=== PATIENT | male | born 1980 | race Caucasian/White ===

== ENCOUNTER 2016-10-25 16:10 | Emergency (ER) | payer OTHER ==
[~2016-10-25] VITALS: Ht 193 cm; Wt 93.3 kg
[2016-10-25 16:18] VITALS: BP 115/80; TEMP 36.4; Ht 193 cm; Wt 93.3 kg
[2016-10-25] MEDS ORDERED: CYCL10TA6 PO (17:13)
[2016-10-25] MEDS ORDERED: TRAM-10 PO (17:13)
--- NOTE | 2016-10-25 17:13 | EMERGENCY ROOM VISIT NOTE ---
ED Visit Note First contact with patient: 16:36 CHIEF COMPLAINT: Low back pain 5 days HISTORY OF PRESENT INJURY: Patient is a 36-year-old white male who presents to emergency department for evaluation of left-sided low back pain. He states that he lifted a heavy window air-conditioning unit 5 days ago, and while holding the air conditioner and twisting slightly, he felt an acute twinge in his left low back. He states that he has had discomfort in the left low back that radiates slightly to the buttocks since then, it has worsened in the last couple of days. He states that he now has pain with any type of movement, including bending over or standing upright. He has difficulty with position changes. It radiates into the left buttock, but does not wrap around to the right side. He denies any pain radiating to his hips, legs or groin. He tried resting, taking ibuprofen and standing in a hot shower. He is on gabapentin chronically for a paresthesia in the anterior right thigh as a result of his right acetabular ORIF. He otherwise denies any changes in the numbness, tingling in his legs, and no leg weakness. He has a remote history of an old T9 fracture from a fall. He does not have a history of any low back problems. He denies any bowel or bladder incontinence or saddle anesthesias. He rates his pain an 8/10. REVIEW OF SYSTEMS: Review of systems as per HPI. All other systems reviewed were negative. 10 systems reviewed. PMH: Electronic medical records are reviewed and summarized as above/below. See Problem List. SOCIAL HISTORY: Patient lives at home in [place], but is apparently staying locally with his wheelchair-bound girlfriend. He is a smoker. 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 PHYSICAL EXAM: Vital Signs: Reviewed Nurse's notes. CONSTITUTIONAL: Patient is a well-appearing 36-year-old white male who is awake and alert and laying supine on the gurney in mild distress due to their back pain. There is significant discomfort with position changes. HEENT: Normocephalic, atraumatic. Pupils equal, round, reactive to light and accommodation. EOMs intact without nystagmus. Sclera are anicteric. Tympanic membranes intact, with normal landmarks. External canals are clear. Oral and nasopharynx are clear. Mucous membranes are moist. NECK: No bruits auscultated. Supple without lymphadenopathy. No thyromegaly. No meningeal signs. Full active range of motion without discomfort. CARDIOVASCULAR: Regular rate and rhythm, with normal S1 and S2, no murmur or gallop or rub is heard. No carotid bruits auscultated. No JVD. Peripheral pulses easily palpable. RESPIRATORY: Breath sounds equal and clear to auscultation without wheezes, rales, or rhonchi heard. Full and equal chest expansion without accessory muscle use or retractions. ABDOMEN: Bowel sounds are present. Abdomen is soft, nontender and nondistended. Well-healed surgical scars are noted. INTEGUMENTARY: No lesions or rash, normal skin turgor. LYMPH: No lymphadenopathy. SPINE: Examination of the patient's back does not demonstrate any ecchymosis, abrasions or outward signs of trauma. No erythema, increased warmth or induration. Patient has midline discomfort to palpation over the low lumbar spine, primarily on the left. There is no pain over the SI joint or the sciatic notch. He has increased pain with range of motion including rotation and flexion. EXTREMITIES: Leg lengths are symmetrical. Negative logroll bilaterally. Normal strength including dorsi-flexion and plantar flexion of the great toes and ankles and flexion and extension of the knees and flexion of the hips. Negative bilateral straight leg raise testing. Lower extremity DTRs are equal and symmetrical bilaterally. Distal pulses are easily palpable. Sensation light touch is intact over the lower extremities bilaterally. EMERGENCY DEPARTMENT COURSE: The patient was seen and examined as above. His old records are reviewed. He has only one prior ED visit at our facility.Patient was reviewed in the [facility] Prescription Drug Monitoring Program. The patient admitted to having a problem with addiction, prior to his trauma and surgeries from last summer. He reports that he only uses tramadol as needed and does not find that other medications including Percocet work as well. He has sustained an isolated lumbar strain due to the lifting injury. His mechanism of injury is not consistent with trauma and I do not suspect fracture. It was not felt that radiographs were indicated, and the patient was in agreement. He was encouraged to apply heat to the area, continue the ibuprofen and gabapentin, and used tramadol and Flexeril as needed for pain and muscle spasms. He was advised to follow-up with his primary care provider for further care and management of his injury. MEDICAL DECISION MAKING: I do not suspect acute compression syndrome, cauda equina, diskitis, epidural abscess, hematoma or neurovascular compromise. Patient was reviewed in the [facility] Prescription Drug Monitoring Program. He has received 14 controlled substance prescriptions from 6 prescribers in the last 12 months, which would include the trauma and postoperative follow-up. His last prescription was for a 30 day supply of tramadol from his PCP on September 22. Problem List Surgical Problems: (1) Left tibial fracture Status: Chronic (2) Right acetabular fracture Status: Chronic Current/Historical Medications Scheduled PRN Cyclobenzaprine Hcl (Flexeril), 10 MG PO TID PRN for Muscle Spasms Tramadol (Ultram), 1-2 TABS PO Q4H PRN for Pain Allergies Coded Allergies: No Known Allergies (Unverified , 10/28/11) Vital Signs Date Time Temp Pulse Resp B/P Pulse Ox O2 Delivery O2 Flow Rate FiO2 10/25/16 17:19 76 18 96 10/25/16 16:18 36.4 75 18 115/80 98 Room Air Medications Administered Medications (Trade) Dose Ordered Sig/Margie Route Start Time Stop Time Status Last Admin Dose Admin Tramadol HCl (Ultram Home Pack) 1 homepack UD ONCE PO 10/25/16 17:15 10/25/16 17:16 DC 10/25/16 17:12 1 HOMEPACK Cyclobenzaprine HCl (FLEXERIL 10MG Home Pack) 1 homepack UD ONCE PO 10/25/16 17:15 10/25/16 17:16 DC 10/25/16 17:12 1 HOMEPACK Departure Information Impression Primary Impression: Strain of lumbar region Prescriptions Cyclobenzaprine Hcl (FLEXERIL) 10 Mg Tab 10 MG PO TID Y for Muscle Spasms, #20 TAB Prov: Leela Quach PA 10/25/16 Tramadol (Ultram) 50 Mg Tab 1-2 TABS PO Q4H Y for Pain, #20 TAB Prov: Leela Quach PA 10/25/16 Referrals Jp Velazquez M.D. (PCP) Patient Instructions My [facility] Additional Instructions Tramadol (Ultram) 50mg: Take 1-2 pills every four hours for breakthrough pain. Avoid alcohol, operating machinery or dangerous equipment, working on ladders or roofs, DRIVING, or situations where being under the influence may be dangerous. It is recommended to use an [id number] stool softener such as Colace, 100mg twice daily while taking this medication to avoid constipation. Cyclobenzaprine (Flexeril) 10 mg: Take 1 pills 3 times daily as needed for muscle spasms.. Avoid alcohol, operating machinery or dangerous equipment, working on ladders or roofs, DRIVING, or situations where being under the influence may be dangerous. Ibuprofen(Motrin, Advil) may be used for fever or pain. Use 600mg every six hours as needed. Take with food. Avoid using more than 2400mg in a 24 hour period. Do not use 2400mg per day for more than three consecutive days without physician direction. Prolonged inappropriate use can lead to stomach upset or ulcers. This medication can be taken if you need to drive, work, or perform activities which may be dangerous when taking narcotic pain medication. (AND/OR) Acetaminophen(Tylenol) may be used for fever or pain. Use 1000mg every six hours as needed. Avoid using more than 3000mg in a 24 hour period. This medication can be taken if you need to drive, work, or perform activities which may be dangerous when taking narcotic pain medication. Rest and avoid heavy lifting until your symptoms resolve and then gradually return to full activity. A good rule of thumb is if it hurts your back to perform a certain activity, then it should be avoided until you are healthy again. A heating pad, warm compresses, or a hot shower may help with tight muscles and can be done several times a day as needed. Continue current medications. Return to the ER immediately for any numbness, tingling, severe pain, loss of control of your bowels or bladder, inability to walk, or as needed. Follow up with your primary care physician within 3-5 days for a recheck of your current condition. Problem Qualifiers Primary Impression: Strain of lumbar region Encounter type: initial encounter Qualified Codes: S39.012A - Strain of muscle, fascia and tendon of lower back, initial encounter
[2016-10-25] MEDS ORDERED: TRAMADOL HCL 50 MG HOME PACK PO ONE (17:15)
[2016-10-25] MEDS ORDERED: FLEXERIL HOME PACK 10 MG VIAL PO ONE (17:15)
[2016-10-25 17:19] VITALS: PULSE 76; O2SAT 96
== END 2016-10-25 17:20 | disposition home or self-care (01) ==
LOC: C.EDB 16:12 → C.EDD 17:20
DX: S39.012A Strain of muscle, fascia and tendon of lower back, initial encounter (principal); X50.9XXA Other and unspecified overexertion or strenuous movements or postures, initial encounter